=== PATIENT | female | born 1990 ===

== ENCOUNTER 2021-02-04 17:08 | Emergency (ER) | payer SELFPAY ==
[~2021-02-04] VITALS: Ht 165.1 cm; Wt 90.0 kg
--- NOTE | 2021-02-04 17:15 | NUR ---
PT CALLED FOR TRIAGE, NO ANSWER.
[2021-02-04 18:38] VITALS: BP 133/84
--- NOTE | 2021-02-04 19:08 | NUR ---
called in the lobby, no answer.
--- NOTE | 2021-02-04 20:15 | NUR ---
CALLED FOR THE 3RD TIME. NO ANSWER
== END 2021-02-04 20:17 | disposition left against medical advice (07) ==
LOC: ED 17:38
DX: R19.7 Diarrhea, unspecified (principal); R11.2 Nausea with vomiting, unspecified; Z53.21 Procedure and treatment not carried out due to patient leaving prior to being seen by health care provider